=== PATIENT | female | born 1955 | race Caucasian/White ===

== ENCOUNTER 2018-12-17 21:41 | Emergency (ER) | payer MEDICARE, MEDICAID ==
[~2018-12-17] VITALS: Ht 147.3 cm; Wt 38.1 kg
[~2018-12-17 21:41] MED LIST: ACETAMINOPHEN-1 EAC1 PO; AMOXICILLIN875 MG PO; BUTALB-APAP-CA1 EACH PO; CYMBALTA60 MG PO; DEPAKOTE ER500 MG PO; DEPAKOTE500 MG PO; DILANTIN100 MG; DILANTIN100 MG PO; DILANTIN50 MG PO; FIORICET; FIORICET 50-321 EACH PO; FLEXERIL PO; HYDROCODON-ACE1 EAC7 PO; IBUPROFEN 800800 M1 PO; KEFLEX500 MG PO; LANSOPRAZOLE30 MG PO; LEVOTHYROXIN0.088 MG PO; LIORESAL 10 MG10 MG; MAXALT MLT PO; NEXIUM40 MG PO; NORCO 5-325 TA1 EACH PO; OMEPRAZOLE 20 M20 MG PO; PERCOCET 5-3251 EACH PO; PHENERGAN 25 MG25 M1 PO; POTASSIUM20 PO; PREDNISONE 10 M10 MG PO; PREDNISONE50 MG PO; ZOFRAN ODT4 MG PO; ZOFRAN4 MG PO
[2018-12-17] MEDS ORDERED: NORCO 5-325 TA1 EAC1 PO (23:19)
[2018-12-17 23:47] VITALS: BP 134/74
--- NOTE | 2018-12-18 17:18 | EKG ---
[place] [address] ELECTROCARDIOGRAM REPORT Name: MADIHA RUDOLPH [id number] Admission: 12/17/18 Attend Phys: Discharge: 12/17/18 Date of : 53 Report #: [id number] THIS REPORT FOR: //name// [facility] ED Test Date: 2018-12-17 Test Time: 21:48:49 Pat Name: MADIHA RUDOLPH Department: Room: Gender: F Chemistry Quality Control Technician: ALBERT : 1955 Requested By: Daxa Pride Order Number: [id number] Reading MD: Jasmeet Pizarro Measurements Intervals [place] Rate: 56 P: 40 NC: 162 QRS: -10 QRSD: 79 T: 23 QT: 425 QTc: 411 Interpretive Statements Sinus rhythm No previous ECG available for comparison Electronically Signed On 12-18-2018 17:18:30 SCALER PACKER by Jasmeet Pizarro [email or web address] <ELECTRONICALLY SIGNED> By: Jasmeet Pizarro MD, [facility] 12/18/18 1718 2148 2148 Jasmeet Pizarro MD, FACC /EPI
== END 2018-12-17 23:47 | disposition home or self-care (01) ==
LOC: M.ERS 21:41
DX: S20.211A Contusion of right front wall of thorax, initial encounter (principal); M54.5 Low back pain; M79.601 Pain in right arm; G43.909 Migraine, unspecified, not intractable, without status migrainosus; Z90.89 Acquired absence of other organs; Z90.710 Acquired absence of both cervix and uterus; W17.89XA Other fall from one level to another, initial encounter; Y92.89 Other specified places as the place of occurrence of the external cause; Y93.89 Activity, other specified; Y99.8 Other external cause status

== ENCOUNTER 2018-12-26 20:04 | Emergency (ER) | payer MEDICARE, MEDICAID ==
[~2018-12-26] VITALS: Ht 147.3 cm; Wt 37.2 kg
[~2018-12-26 20:04] MED LIST changes: +NORCO 5-325 TA1 EAC1 PO
[2018-12-26] MEDS ORDERED: SYNTHROID100 MC1 PO (20:16)
[2018-12-26] MEDS ORDERED: BUTALB-APAP-CA1 EACH PO (20:18)
[2018-12-26 20:43] LABS: HEMATOCRIT 41.3 % (37.0-47.0); MCH 34.9 pg (26.0-34.0); MCHC 33.9 g/dL (28.0-37.0); MCV 102.9 fL (80.0-100.0); MPV 7.1 fl. (7.2-11.1); RBC 4.01 mil/uL (4.20-5.00); RDW-CV 13.2 % (10.5-14.5); WBC 7.1 thou/uL (4.0-11.0)
[2018-12-26 20:55] LABS: CALCIUM 8.8 mg/dL (8.5-10.1); CREATININE 0.5 mg/dL (0.6-1.3); POTASSIUM 3.8 mmol/L (3.5-5.1)
[2018-12-26 20:59] LABS: ALBUMIN 3.7 g/dL (3.4-5.0); TOTAL BILIRUBIN 0.4 mg/dL (<0.1-1.0); TOTAL PROTEIN 6.9 g/dL (6.4-8.2)
[2018-12-26] MEDS ORDERED: NORCO 5-325 TA1 EAC1 PO (21:51)
[2018-12-26 22:03] VITALS: BP 155/80
== END 2018-12-26 22:06 | disposition home or self-care (01) ==
LOC: M.ERS 20:04
PROVIDERS: Personal Emergency Response Attendant
DX: G43.909 Migraine, unspecified, not intractable, without status migrainosus (principal); G40.909 Epilepsy, unspecified, not intractable, without status epilepticus; Z88.0 Allergy status to penicillin; Z90.710 Acquired absence of both cervix and uterus; Z98.890 Other specified postprocedural states

== ENCOUNTER 2019-01-08 04:09 | Inpatient (IN) | payer MEDICARE, MEDICAID ==
[~2019-01-08] VITALS: Ht 147.3 cm; Wt 43.1 kg
--- NOTE | ~2019-01-08 | PROC ---
[address] [address] PROCEDURE REPORT Name: MADIHA RUDOLPH Room: [address] IN M.R.#: [id number] Admission: 01/08/19 Attend Phys: Radha lopez [place] Discharge: 01/11/19 Date of : 53 Report #: [id number] THIS REPORT FOR: //name// For GI report, please see the Provation report in Perceptive 7 content. By: [id number] Records Staff KHOI /JERALD
[~2019-01-08 04:09] MED LIST changes: +SYNTHROID100 MC1 PO
[2019-01-08 04:16] VITALS: BP 146/87
[2019-01-08 04:24] LABS: URINE BILIRUBIN NEGATIVE (Negative); URINE BLOOD NEGATIVE (Negative); URINE CLARITY CLEAR; URINE COLOR YELLOW; URINE GLUCOSE-RANDOM NEGATIVE (Negative); URINE KETONES NEGATIVE (Negative); URINE LEUKOCYTES-REFLEX NEGATIVE (Negative); URINE NITRITE-REFLEX NEGATIVE (Negative); URINE PROTEIN NEGATIVE (Negative); URINE UROBILINOGEN 0.2 E.U./dl (0.2-1.0)
[2019-01-08 04:54] LABS: ABSOLUTE BASOPHILS 0.1 thou/uL (0.0-0.2); ABSOLUTE EOSINOPHILS 0.1 thou/uL (0.0-0.7); ABSOLUTE MONOCYTES 0.8 thou/uL (0.0-1.2); ABSOLUTE NEUTROPHILS 2.8 thou/uL (1.6-8.1); BASOPHILS 0.8 %; EOSINOPHILS 1.7 %; HEMATOCRIT 37.8 % (37.0-47.0); HEMOGLOBIN 12.7 gm/dL (12.0-15.0); MCHC 33.7 g/dL (28.0-37.0); MCV 100.9 fL (80.0-100.0); MONOCYTES 11.9 %; MPV 7.1 fl. (7.2-11.1); NUCLEATED RBCS 0 /100WBC; PLATELET COUNT* 353 thou/uL (150-400); POLYS 41.6 %; RBC 3.74 mil/uL (4.20-5.00); RDW-CV 13.1 % (10.5-14.5); WBC 6.8 thou/uL (4.0-11.0)
[2019-01-08 05:06] LABS: CALCIUM 8.6 mg/dL (8.5-10.1); CREATININE 0.8 mg/dL (0.6-1.3); POTASSIUM 3.9 mmol/L (3.5-5.1)
[2019-01-08 05:11] LABS: ALBUMIN 3.3 g/dL (3.4-5.0); TOTAL BILIRUBIN 0.2 mg/dL (<0.1-1.0); TOTAL PROTEIN 6.5 g/dL (6.4-8.2)
[2019-01-08 07:40] VITALS: BP 138/92
[2019-01-08 08:00] VITALS: BP 150/86
--- NOTE | 2019-01-08 09:57 | EKG ---
[place] [address] ELECTROCARDIOGRAM REPORT Name: MADIHA RUDOLPH Room: [address] ADM IN .R.#: [id number] Admission: 01/08/19 Attend Phys: Radha Green Discharge: Date of : 53 Report #: [id number] THIS REPORT FOR: //name// [facility] ED Test Date: 2019-01-08 Test Time: 04:23:05 Pat Name: MADIHA RUDOLPH Department: Room: [facility] Gender: F Tube Washer: HENRRY : 1955 Requested By: Radha Courtney Order Number: [id number] MD: Ronald Rothman Measurements Intervals [place] Rate: 85 P: 44 [place]: 138 QRS: -21 QRSD: 81 T: 39 QT: 385 QTc: 458 Interpretive Statements Sinus rhythm Borderline left axis deviation Anteroseptal infarct, old Compared to ECG 12/17/2018 21:48:49 Myocardial infarct finding now present Electronically Signed On 01-08-2019 9:56:46 SIGNING AGENT by Ronald Rothman [email or web address] <ELECTRONICALLY SIGNED> By: Ronald Rothman MD, [facility] 01/08/19 0956 0423 0423 Ronald Rothman MD, [facility] /EPI
[2019-01-08 15:34] VITALS: BP 167/81
--- NOTE | 2019-01-08 16:36 | NUR ---
ASSESSMENT COMPLETE. PT ADMITTED THIS MORNING. ABS US AND MRI COMPLETED TODAY. GI AND SURGERY CONSULTS. GI PLANS FOR PROCEDURE TOMORROW. PT IS ON ROOM AIR, VSS. IV FLUIDS INFUSING. UP AD ANNABEL. DENIES N/V. IV MORPHINE Q3 PRN FOR PAIN. SEE ASSESSMENT AND VITALS FOR OTHER DETAILS. CALL LIGHT WITHIN REACH, WILL CONTINUE PLAN OF CARE
[2019-01-08] MEDS ORDERED: NORTRIPTYLINE H10 M1 PO (17:58)
[2019-01-09] VITALS: BP 123/67
[2019-01-09 04:15] LABS: ABSOLUTE EOSINOPHILS 0.2 thou/uL (0.0-0.7); ABSOLUTE LYMPHOCYTES 1.8 thou/uL (0.8-5.3); ABSOLUTE MONOCYTES 0.7 thou/uL (0.0-1.2); ABSOLUTE NEUTROPHILS 3.8 thou/uL (1.6-8.1); BASOPHILS 0.6 %; EOSINOPHILS 2.4 %; HEMATOCRIT 36.2 % (37.0-47.0); HEMOGLOBIN 12.5 gm/dL (12.0-15.0); LYMPHOCYTES 27.7 %; MCH 34.8 pg (26.0-34.0); MCHC 34.6 g/dL (28.0-37.0); MCV 100.6 fL (80.0-100.0); MONOCYTES 10.6 %; MPV 6.7 fl. (7.2-11.1); NUCLEATED RBCS 0 /100WBC; PLATELET COUNT* 377 thou/uL (150-400); POLYS 58.7 %; RBC 3.59 mil/uL (4.20-5.00); RDW-CV 13.3 % (10.5-14.5); WBC 6.5 thou/uL (4.0-11.0)
[2019-01-09 04:59] LABS: ALBUMIN 3.2 g/dL (3.4-5.0); CREATININE 0.6 mg/dL (0.6-1.3); TOTAL BILIRUBIN 0.3 mg/dL (<0.1-1.0); TOTAL PROTEIN 6.3 g/dL (6.4-8.2)
--- NOTE | 2019-01-09 05:50 | NUR ---
PATIENT SLEPT MOST OF THE NIGHT. NEW IV WAS STARTED CHARTED. IV FLUIDS CONTINUE TO INFUSE AT 80 ML/HR. PATIENT WAS GIVEN PAIN MEDICINE ONCE THIS SHIFT. WILL CONTINUE TO MONITOR.
[2019-01-09 12:14] VITALS: BP 123/67
--- NOTE | 2019-01-09 13:00 | NUR ---
UP WALKING IN HALLS, WAITING FOR PROCEDURE. TIME WAS PUSHED BACK TO 3PM PER NURSING. PT.AWARE. SHE LIVES ALONE. IS INDEPENDENT. SHE HAS A S.O. THAT CAN HLEP HER IF NEEDED. SHE PLANS TO RETURN HOME AT DISCHARGE. NO DME OR HX OF .
--- NOTE | 2019-01-09 17:53 | NUR ---
ASSUMED CARE OF PATIENT AT 1500. PATIENT OFF UNIT FOR ERCP AT THAT TIME. PATIENT RETURNED THIS EVENING AT 1720 WITHOUT INCIDENT. PATIENT HAVING COMPLAINTS OF ABDOMINAL PAIN. TOLERATING CLEAR LIQUIDS. PATIENT DENIES ANY NEEDS AT THIS TIME. CALL LIGHT WITHIN REACH.
[2019-01-09 20:30] VITALS: BP 130/78
[2019-01-10 04:34] LABS: ABSOLUTE LYMPHOCYTES 1.3 thou/uL (0.8-5.3); ABSOLUTE MONOCYTES 0.7 thou/uL (0.0-1.2); ABSOLUTE NEUTROPHILS 3.1 thou/uL (1.6-8.1); BASOPHILS 0.3 %; EOSINOPHILS 0.3 %; HEMATOCRIT 34.5 % (37.0-47.0); HEMOGLOBIN 11.7 gm/dL (12.0-15.0); LYMPHOCYTES 25.7 %; MCV 100.1 fL (80.0-100.0); MONOCYTES 13.7 %; MPV 7.2 fl. (7.2-11.1); NUCLEATED RBCS 0 /100WBC; PLATELET COUNT* 372 thou/uL (150-400); RBC 3.45 mil/uL (4.20-5.00); RDW-CV 12.5 % (10.5-14.5); WBC 5.2 thou/uL (4.0-11.0)
[2019-01-10 05:00] LABS: ALBUMIN 2.9 g/dL (3.4-5.0); CALCIUM 8.2 mg/dL (8.5-10.1); CREATININE 0.6 mg/dL (0.6-1.3); POTASSIUM 4.4 mmol/L (3.5-5.1); TOTAL BILIRUBIN 0.2 mg/dL (<0.1-1.0); TOTAL PROTEIN 5.9 g/dL (6.4-8.2)
--- NOTE | 2019-01-10 06:18 | NUR ---
PATIENT SLEPT VERY LITTLE THIS SHIFT. PATIENT WAS GIVEN PAIN MEDICINE ABOUT EVERY 3 HOURS WITH SOME RELIEF. IV FLUIDS CONTINUE TO INFUSE AT 80 ML/HR. WILL CONTINUE TO MONITOR.
[2019-01-10 09:25] VITALS: BP 115/76
[2019-01-10 16:30] VITALS: BP 135/75
--- NOTE | 2019-01-10 18:39 | NUR ---
PATIENT ALERT AND ORIENTED THRU SHIFT. SEE MAR FOR PAIN CONTROL. PATIENT STATES HER PAIN LEVEL IS A CONSTANT 7 IN HER NECK AND BACK AREAS. PATIENT HAS HX OF MIGRAINES, STATES THAT BRANCH "WENT AWAY" TODAY. INDEP IN RM. IV FLUIDS INFUSING W/O DIFF. IV SITE RT HAND NOTED WNL. STATES HAVING TROUBLE SWALLOWING AT TIMES, FEELS LIKE GETTING "STUCK". CURRENTLY RESTING IN BED, CALL LIGHT IN REACH. RM DARKENED. HRLY ROUNDS DONE. ~TJRN
[2019-01-10 20:05] VITALS: BP 128/78
[2019-01-11 04:01] LABS: HEMATOCRIT 34.4 % (37.0-47.0); HEMOGLOBIN 11.6 gm/dL (12.0-15.0); MCH 34.4 pg (26.0-34.0); MCHC 33.8 g/dL (28.0-37.0); MCV 101.6 fL (80.0-100.0); MPV 7.1 fl. (7.2-11.1); RBC 3.38 mil/uL (4.20-5.00); RDW-CV 12.8 % (10.5-14.5); WBC 5.7 thou/uL (4.0-11.0)
[2019-01-11 04:13] LABS: ALBUMIN 2.9 g/dL (3.4-5.0); CALCIUM 7.8 mg/dL (8.5-10.1); CREATININE 0.5 mg/dL (0.6-1.3); TOTAL BILIRUBIN 0.2 mg/dL (<0.1-1.0); TOTAL PROTEIN 5.8 g/dL (6.4-8.2)
--- NOTE | 2019-01-11 04:27 | NUR ---
PATIENT HAS REMAINED ALERT AND ORIENTED X 4 THROUGHOUT THE SHIFT AND RESTING QUIETLY ON HOURLY ROUNDS. MEDICATED PER REQUEST Q4H FOR NECK AND BACK PAIN. NO NAUSEA. ADEQUATE VOIDS. NO BM'S THIS SHIFT. IVF'S PER ORDER. NPO AT 0400 FOR BARRIUM SWALLOW THIS AM. CONTINUE TO MONITOR.
[2019-01-11 07:40] VITALS: BP 143/91
[2019-01-11] MEDS ORDERED: REMERON15 MG PO (11:40)
[2019-01-11 12:14] VITALS: BP 143/91
--- NOTE | 2019-01-11 16:27 | NUR ---
ASSUMED CARE OF PATIENT AT APPROX 0730. ALERT AND ORIENTED X4. ASSESSMENT COMPLETED AND CHARTED. VSS ON ROOM AIR. COMPLAINTS OF HEADACHE/MIGRAINE ADDRESSED WITH ORAL AND IV MEDS. NO OTHER COMPLAINTS. PATIENT UP AD ANNABEL AND WALKING THE UNIT. PATIENT DISCHARGED AT 1300 WITH ALL PERSONAL BELONGINGS AND DISCHARGE INFORMATION.
--- NOTE | 2019-01-12 21:42 | CON ---
[address] [address] CONSULTATION Name: MADIHA RUDOLPH Room: [address] IN M.R.#: [id number] Admission: 01/08/19 Attend Phys: Radha Green Discharge: 01/11/19 Date of : 53 Report #: [id number] THIS REPORT FOR: //name// CC: Joshua Huizar DO Makayla Courtney DICTATED BY: Evelyne Robertson [facility] DATE OF SERVICE: 01/08/2019 Please note at the time of this dictation, the patient was seen and physically examined by myself. REASON FOR CONSULTATION: Abdominal pain and dilated CBD. HISTORY OF PRESENT ILLNESS: This is a 63-year-old female who states that she had an abrupt onset of upper abdominal pain that wrapped around into her back. She states it was a sudden onset and nonresolving. She still rates her pain as around 7. The patient did undergo a lap izabel back in [address] Julee prince at [facility]. She states that was related to as "her gallbladder was sludgy." She states she has had no issues with nausea or vomiting; however, she has had some unintentional weight loss. Since her gallbladder had been removed, she was having significant issues with diarrhea in which she was taking a lot of Imodium. Finally, here recently she saw a GI doctor at [facility], underwent an EGD and colonoscopy about 6 weeks ago and she was placed on a prednisone taper at that time. She thinks she had microscopic colitis, but we will obtain those records to verify. She was down to her last week of steroids of one pill a day. She recently saw her PCP who put her on cholestyramine for also a possible bile acid diarrhea, but she had not started that yet. The patient had had an EGD back in 2011 that was essentially negative that showed some chemical gastritis. ALLERGIES: PENICILLIN. MEDICATIONS FROM HOME: Pantoprazole, Synthroid, Fioricet, Cymbalta and Depakote. PAST MEDICAL HISTORY: Significant for epilepsy, hypothyroidism. PAST SURGICAL HISTORY: Hysterectomy and cholecystectomy. FAMILY HISTORY: Negative for any GI or female cancers. SOCIAL HISTORY: Lives with family. Denies any alcohol, tobacco [place] [address] CONSULTATION Name: MADIHA RUDOLPH Room: [address]#: [id number] Admission: 01/08/19 Attend Phys: Radha mccoy [place] Discharge: 01/11/19 Date of : 53 Report #: [id number] REVIEW OF SYSTEMS: Twelve-point review of systems is essentially negative except what is mentioned in the HPI. PHYSICAL EXAMINATION: VITAL SIGNS: Temperature 36.4, pulse 82, respirations 16, blood pressure 150/86. HEART: Regular rate and rhythm. LUNGS: Clear. ABDOMEN: Soft, positive bowel sounds in all four quadrants with no masses or tenderness noted. Currently, her bowels are moving 2-3 times a day compared to what they were since completed these steroids. LABORATORY DATA: Hemoglobin 12.7, white count 6.8, platelets 353,000. GFR 72. Total bilirubin is 0.2, alkaline phosphatase 72, ALT is 16, AST is 11. CT of the abdomen and pelvis on admission showed a dilated CBD at 17 mm with a small cystic lesion at the head of the pancreas. MRCP and ultrasound are still pending done this a.m. IMPRESSION: 1. Abdominal pain. 2. Abnormal CT with dilated common bile duct. 3. Recent diagnosis of microscopic colitis and finishing a steroid taper. 4. Loose stools. PLAN: 1. Await ultrasound and MRCP results. 2. Obtain records from [facility] regarding her recent EGD and colon. 3. Further recommendations to be made once we have a chance to review the above. Thank you for allowing us to participate in this patient's care. Please do not hesitate to call with any questions in regard to this consult. <ELECTRONICALLY SIGNED> By: Bharathi Sharp DO 01/12/19 2142 1157 [id number] Sharp DO /nt
== END 2019-01-11 13:00 | disposition home or self-care (01) | DRG 444 ==
LOC: M.ERS 04:09 → M.TBA-ER 06:44 → M.ORTHSURG 06:44
PROVIDERS: Emergency Medicine; Internal Medicine; Internal Medicine Gastroenterology; Surgery; ADMIT Family Medicine
PROC: 0DJ08ZZ Inspection of Upper Intestinal Tract, Via Natural or Artificial Opening Endoscopic (ICD-10-PCS; principal; 2019-01-09)
PROC: 0F798ZZ Dilation of Common Bile Duct, Via Natural or Artificial Opening Endoscopic (ICD-10-PCS; 2019-01-09)
DX: K80.51 Calculus of bile duct without cholangitis or cholecystitis with obstruction (principal); E43 Unspecified severe protein-calorie malnutrition; K86.2 Cyst of pancreas; Z68.1 Body mass index [BMI] 19.9 or less, adult; G43.909 Migraine, unspecified, not intractable, without status migrainosus; K59.00 Constipation, unspecified; G40.909 Epilepsy, unspecified, not intractable, without status epilepticus; E03.9 Hypothyroidism, unspecified; K29.70 Gastritis, unspecified, without bleeding; Z90.49 Acquired absence of other specified parts of digestive tract; Z88.0 Allergy status to penicillin; Z79.899 Other long term (current) drug therapy; Z90.710 Acquired absence of both cervix and uterus; Z87.891 Personal history of nicotine dependence

== ENCOUNTER 2019-01-13 22:53 | Emergency (ER) | payer MEDICARE, MEDICAID ==
[~2019-01-13] VITALS: Ht 147.3 cm; Wt 43.1 kg
[~2019-01-13 22:53] MED LIST changes: +NORTRIPTYLINE H10 M1 PO; +REMERON15 MG PO
[2019-01-13 23:19] LABS: ABSOLUTE EOSINOPHILS 0.2 thou/uL (0.0-0.7); ABSOLUTE LYMPHOCYTES 3.8 thou/uL (0.8-5.3); ABSOLUTE MONOCYTES 0.8 thou/uL (0.0-1.2); ABSOLUTE NEUTROPHILS 2.3 thou/uL (1.6-8.1); BASOPHILS 0.7 %; EOSINOPHILS 2.3 %; HEMATOCRIT 41.1 % (37.0-47.0); LYMPHOCYTES 53.7 %; MCH 33.7 pg (26.0-34.0); MCHC 33.4 g/dL (28.0-37.0); MONOCYTES 11.2 %; MPV 7.3 fl. (7.2-11.1); NUCLEATED RBCS 0 /100WBC; POLYS 32.1 %; RBC 4.07 mil/uL (4.20-5.00); RDW-CV 13.1 % (10.5-14.5)
[2019-01-13 23:20] LABS: HEMOGLOBIN 13.7 gm/dL (12.0-15.0); PLATELET COUNT* 411 thou/uL (150-400)
[2019-01-13 23:36] LABS: CREATININE 0.8 mg/dL (0.6-1.3); POTASSIUM 3.8 mmol/L (3.5-5.1)
[2019-01-13 23:50] LABS: ALBUMIN 3.8 g/dL (3.4-5.0); CK-MB MASS 0.7 ng/mL (<0.5-3.6); MAGNESIUM 2.1 mg/dL (1.8-2.4); TOTAL BILIRUBIN 0.2 mg/dL (<0.1-1.0); TOTAL PROTEIN 7.1 g/dL (6.4-8.2)
[2019-01-14] LABS: APTT 23.7 Seconds (25.0-31.3); PROTIME 10.4 Seconds (9.20-11.50)
[2019-01-14] MEDS ORDERED: NORCO 5-325 TA1 EAC1 PO (00:04)
[2019-01-14 00:57] VITALS: BP 155/71
--- NOTE | 2019-01-15 10:52 | EKG ---
[place] [address] ELECTROCARDIOGRAM REPORT Name: MADIHA RUDOLPH [facility] [id number] Admission: 01/13/19 Attend Phys: Discharge: 01/14/19 Date of : 53 Report #: [id number] THIS REPORT FOR: //name// [facility] ED Test Date: 2019-01-13 Test Time: 23:29:36 Pat Name: MADIHA RUDOLPH Department: Room: Gender: F Store Hand: : 1955 Requested By: Gurjit Francisco Order Number: [id number] MD: Jasmeet Pizarro Measurements Intervals [place] Rate: 68 P: 69 NC: 150 QRS: 1 QRSD: 81 T: 44 QT: 391 QTc: 416 Interpretive Statements Sinus rhythm Possible anteroseptal infarct, old Compared to ECG 01/08/2019 04:23:05 No significant changes Electronically Signed On 01-15-2019 10:52:25 HUMIDIFIER ATTENDANT by Jasmeet Pizarro [email or web address] <ELECTRONICALLY SIGNED> By: Jasmeet Pizarro MD, [facility] 01/15/19 1052 28 28 Jasmeet Pizarro MD, FACC /EPI
== END 2019-01-14 00:59 | disposition home or self-care (01) ==
LOC: M.ERS 22:53
PROVIDERS: Family Medicine
DX: S22.41XA Multiple fractures of ribs, right side, initial encounter for closed fracture (principal); R07.89 Other chest pain; R10.11 Right upper quadrant pain; G43.909 Migraine, unspecified, not intractable, without status migrainosus; Z90.710 Acquired absence of both cervix and uterus; Z90.49 Acquired absence of other specified parts of digestive tract; Z88.0 Allergy status to penicillin; W19.XXXA Unspecified fall, initial encounter; Y93.89 Activity, other specified; Y92.89 Other specified places as the place of occurrence of the external cause; Y99.8 Other external cause status

== ENCOUNTER 2019-02-23 13:58 | Emergency (ER) | payer MEDICARE, MEDICAID ==
[~2019-02-23] VITALS: Ht 147.3 cm; Wt 42.6 kg
[2019-02-23] MEDS ORDERED: VOLTAREN GEL 1100 G1 TOP (15:04)
[2019-02-23 15:11] VITALS: BP 128/85
== END 2019-02-23 15:12 | disposition home or self-care (01) ==
LOC: M.ERS 13:58
DX: S16.1XXA Strain of muscle, fascia and tendon at neck level, initial encounter (principal); S00.83XA Contusion of other part of head, initial encounter; G43.909 Migraine, unspecified, not intractable, without status migrainosus; Z90.710 Acquired absence of both cervix and uterus; Z90.89 Acquired absence of other organs; Z90.49 Acquired absence of other specified parts of digestive tract; Z88.0 Allergy status to penicillin; W22.8XXA Striking against or struck by other objects, initial encounter; Y93.89 Activity, other specified; Y92.89 Other specified places as the place of occurrence of the external cause; Y99.8 Other external cause status